=== PATIENT | female | born 1945 ===

== ENCOUNTER 2018-06-06 05:47 | Day surgery (SDC) | payer MEDICARE, MEDICAID ==
[2018-06-04 13:33] VITALS: BMI 28.7
[2018-06-06] MEDS ORDERED: Lactated Ringer's 1,000 ML IV ONE (06:51)
[2018-06-06] MEDS ORDERED: Rocuronium 10 mg/ml (5 ml) ONE (07:01)
[2018-06-06] MEDS ORDERED: Succinylcholine 200 mg/10 ml Inj IV ONE (07:01)
[2018-06-06] MEDS ORDERED: Propofol 10 mg/ml Inj (20 ML) ONE (07:01)
[2018-06-06] MEDS ORDERED: Lidocaine 4% (Laryng-O-Jet) Kit MM ONE (07:02)
[2018-06-06] MEDS ORDERED: Phenylephrine 10 mg/ml Inj ONE ×2 (07:06→07:12)
[2018-06-06] MEDS ORDERED: ceFAZolin IV 1 gm in Dextrose 0 GM/0 ML BAG IVPB ONE (07:25)
[2018-06-06] MEDS ORDERED: Bupivacaine HCl 0.5% PF (30 ml) Inj ONE (07:25)
[2018-06-06] MEDS ORDERED: Lidocaine 2% w Epi 1:100,000 Inj IJ ONE (07:25)
--- NOTE | 2018-06-06 07:53 | CP.SDSHP ---
Same Day Surgery H & P - History Proposed Procedure: Excision of chest wall lesion Pre-Op Diagnosis: Chest wall lesion - Previous Medical/Surgical History Cardiac: Hypertension Endocrine/Metabolic: Diabetes Pain: 2.Mild Pain Previous Surgical History: Back surgery, knee surgery - Allergies Allergies: Allergies Penicillins Allergy (Verified 06/04/18 13:33) RASH - Physical Exam General Appearance: NAD Vital Signs: Vital Signs 06/06/18 06/06/18 06:33 06:37 Temperature 98.2 F Pulse Rate 72 72 Respiratory 20 Rate Blood Pressure 139/60 O2 Sat by Pulse 98 Oximetry Neuro: WNL Heart: WNL Lungs: WNL - {Optional Preform as Required} Integument: Other (Mid chest wall with erythematous lesion, approximately 2 x 3 cm, non tender) - Impression Impression: Mid chest wall lesion Pt. Evaluated Today:Candidate for Anesthesia & Procedure: Yes - Date & Time Date: 06/06/18 Time: 07:52 Short Stay Discharge - Short Stay Discharge Admitting Diagnosis/Reason for Visit: R22.2,T86.6 Disposition: HOME/ ROUTINE Referrals: Mike Gray MD [Primary Care Provider] - Colby Caceres MD [Staff Provider] - Instructions: Stitches Additional Instructions (Diet, Activity): Please calll Dr. Caceres' office to see him in the office this If you have pain at home, please take Tylenol You have special glue over your incisions, this will fall off in time- do not remove it yourself Do not go swimming, take a bath or sit in a hot tub until the glue has been removed Ok to shower, washing gently with soap and water tomorrow
[2018-06-06] MEDS ORDERED: Oxycodone/Acetaminophen 5/325 mg Tab PO PRN (09:09)
[2018-06-06] MEDS ORDERED: HYDROmorphone 0.5 mg/0.5 ml ISec IVP PRN (09:13)
[2018-06-06] MEDS ORDERED: Dexamethasone 4 mg/1 ml IVP PRN (09:13)
[2018-06-06] MEDS ORDERED: Lactated Ringer's 1,000 ML IV SCH (09:15)
[2018-06-06 12:09] VITALS: BP 116/49; PULSE 83; RESP 18; TEMP 97.9; O2SAT 97
--- NOTE | 2018-06-09 23:46 | OP ---
Copied To: Colby Caceres MD Attending MD: Colby Caceres MD PROCEDURE DATE: 06/06/2018 A 72-year-old female. PREOPERATIVE DIAGNOSIS: Anterior chest wall mass, 6 cm greater diameter deep intramuscular. POSTOPERATIVE DIAGNOSIS: Anterior chest wall mass, 6 cm greater diameter deep intramuscular. PROCEDURES: 1. Excision of deep intramuscular anterior chest wall mass, measuring large diameter 6 cm. 2. Wound closure with advancement flaps. SURGEON: Colby Caceres MD ANESTHESIA: MAC. DESCRIPTION OF THE PROCEDURE: The patient was brought to the operating room and placed on the operating table in a supine position. After smooth induction of IV sedation, Venodyne boots were placed in the both legs, and prophylactic IV antibiotics were given. Then, the entire anterior chest wall was prepped and draped in the usual sterile fashion. The area of the anterior chest wall mass which measured 6 cm in the large diameter was marked with the marking pen, and the area around it was marked with marking pen along the lines. The marked area was infiltrated with local anesthetic, was comprised of 0.5% Marcaine and 1% lidocaine with epinephrine in equal volumes. The incision was then brought down to subcutaneous tissue using Bovie electrocautery. Flaps were raised inferiorly and superiorly at 45-degree angle encompassing the entire mass with the capsule being intact and adequate normal appearing subcutaneous tissues circumferentially over the way down to the fascia of pectoralis major muscle with the mass partly being embedded within the muscle. Dissection continued all the way to the most deep margin of the mass until it is all completely attachment of surrounding tissues. The specimen was also sent to Pathology, appropriately labeled, and sections. The wound was irrigated with warm normal saline, and a few bleeders were easily controlled with Bovie electrocautery. The flaps were raised inferiorly of 6 cm from the skin edge along between subcutaneous tissue and the fascia all the down underlying pectoralis major muscle, enabling a retention free wound closure in two layers using interrupted 2-0 Vicryl stitch and secured with dermis and 4-0 continuous subcuticular Monocryl stitch for the skin. Steri-Strips were applied. At the end of the surgery, the counts of instruments, gauze, and needles were correct x2. The patient tolerated the surgery well and was transferred in stable condition to the recovery room. Colby Caceres MD [facility] # [id number]
== END 2018-06-06 14:06 | disposition home or self-care (01) ==
LOC: H.OPSURG 05:47
PROVIDERS: ATTEND Specialist
DX: L72.0 Epidermal cyst (principal); I10 Essential (primary) hypertension; E11.9 Type 2 diabetes mellitus without complications; Z79.84 Long term (current) use of oral hypoglycemic drugs; Z88.0 Allergy status to penicillin
CPT/HCPCS: 14000; 82948; 88305; J2370; J3010; J7120